=== PATIENT | female | born 1955 | race Caucasian/White ===

== ENCOUNTER → 2018-02-15 | Day surgery (SDC) | payer OTHER ==
[~2018-02-15] VITALS: Ht 160 cm; Wt 75.0 kg
[~2018-02-15] MED LIST: ACETAMINOPHEN 325 MG TAB PO PRN; ASPI81TA28 PO; ATOR-54 PO; ATROPINE SULFATE 0.1 MG/ML 5ML SYR IV PRN; CLIN150C PO; FENTANYL CITRATE INJ 50 MCG/1 ML 2 ML VIAL ONE; HEPARIN SOD (PORCINE) 1000 UNIT/ML 10 ML VIAL ONE; HYDR12.55 PO; LEVO112T4 PO; LIDOCAINE HCL 1% 20 ML VIAL ONE; MIDAZOLAM HCL 1 MG/ML 2ML VIAL ONE; NITROGLYCERIN/D5W 100MCG/ML 20ML SYR ONE; NiCARDipine HCL INJ 2.5 MG/ML 10 ML AMP ONE; OMEP20CA9 PO; ONDANSETRON INJ 2 MG/ML 2 ML VIAL IV PRN; PROP80TA2 PO; SODIUM CHLORIDE 0.9% 1000ML 1,000 ML IV SCH; SODIUM CHLORIDE 0.9% 1000ML 250 ML IV PRN; SUMA6KIT SC
[2018-02-15 08:44] VITALS: BP 145/96; PULSE 63; O2SAT 95; Ht 160 cm; Wt 75.0 kg
--- NOTE | 2018-02-15 09:24 | History & Physical Bridge Note ---
H&P Re-Evaluation Bridge Note: I have examined the patient, reviewed the History & Physical and in the interval since the performance of the History & Physical I have noted the following changes of clinical significance: No changes noted, except that on the point of care lab today her potassium is 2.9. She does take hydrochlorothiazide which she did not take this morning. I think we can proceed with the cardiac catheterization. I reviewed her most recent labs from the office and her potassium does tend to run low however her renal function is within normal limits.
--- NOTE | 2018-02-15 10:19 | Procedure Note ---
Cardiac Cath Report Procedure: 1. Coronary angiography Procedure summary: The patient was seen and evaluated in the holding area the [facility]. After informed consent was obtained the patient was prepped and draped in the usual manner for right transradial approach. Preformed 5 Beninese diagnostic catheters were utilized for the coronary angiograms. Following the procedure the patient was returned to the holding area the [facility] in stable condition. Coronary angiography: Selective injections of the left coronary artery revealed the left main trunk to be widely patent and within normal limits. The LAD extends all the way to the apex of the heart. The LAD gives off a single large diagonal branch. The LAD system is smooth in appearance widely patent and within normal limits. The left circumflex artery consists principally of a large single marginal branch which is widely patent and within normal limits. Selective injections of the right coronary artery revealed to be a large and hyperdominant. The right coronary artery is smooth in appearance widely patent and within normal limits. 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
--- NOTE | 2018-02-15 10:22 | Cardiac Catheterization ---
Procedure Note Procedure Date Feb 15, 2018. Pre-Procedure Diagnosis Positive Stress Test AUC Score 7 Post-Procedure Diagnosis Normal Coronary Arteries Procedure(s) Performed Coronary Angiography Personal Care Attendant Dr. Jacinto Mgmt Specialist(s) None Estimated Blood Loss None Medication(s) Heparin, Versed, Lidocaine 1% Summary of Findings See dictated report Hemodynamics Rest Ao: 103/66 Final Ao: 109/68 LV: Valve not crossed Recommendations Medical therapy and/or Counseling Specimens None Radiation Exposure (mGy) 1746 Contrast (mls) 77 Procedural Complication(s) None Disposition Lead Mechanical Engineer Holding/Recovery [facility] Data Cardiac Status Clinical evaluation leading to the procedure CAD Presntation: Positive Stress Test Anginal Classification: CCS I Heart Failure: No Cardiogenic Shock w/in 24Hrs: No Cardiac Arrest w/in 24Hrs: No Imaging studies past 6 months: Yes Stress studies past 6 months: Yes Stress Echocardiogram: Yes - Positive Coronary Anatomy Dominant: Right Left Main (% Stenosis): Normal LAD (% Stenosis): Normal Circumflex (% Stenosis): Normal RCA (% Stenosis): Normal Diagnostic Physician's Name: Edward Jacinto, DO Status: Elective Closure Device Closure Device: Radial Band Recommendations: Medical therapy and/or Counseling
--- NOTE | 2018-02-15 10:27 | Discharge Instructions ---
Discharge Instructions Procedure Procedure Date: Feb 15, 2018. Reason for Visit: Abn Stress Test *Ophelia To Do*. Discharge Discharge Date: Feb 15, 2018. Discharge Diagnosis: Normal coronaries Last Recorded Wt (Kilograms): 75 Anesthesia Post Anesthesia Instructions: If you have had General Anesthesia or IV Sedation: * Do not drive today. * Resume driving when surgeon permits. * Do not make important decisions or sign legal documents today. * Call surgeon for: 1. Temperature elevations greater than 101 degrees F. 2. Uncontrollable pain. 3. Excessive bleeding. 4. Persistent nausea and vomiting. 5. Medication intolerance (nausea, vomiting or rash). * For nausea and vomiting use only clear liquids such as: tea, soda, bouillon until nausea subsides, then gradually increase diet as tolerated. * If you have any concerns or questions, call your surgeon's office. If physician is unavailable and it is an emergency, call 911 or go to the nearest emergency room. Instructions Activity Recommendations: limitations Recommended Home Diet: resume previous diet Allergies: Coded Allergies: Morphine (Unverified Allergy, Intermediate, GI SYMPTOMS, 02/15/18) Uncoded Allergies: DEMEROL (Allergy, Intermediate, GI SYMPTOMS, 02/15/18) Provider Instructions ACTIVITY RECOMMENDATIONS: Excess manipulation of the wrist should be avoided for the next 24-48 hours. * No lifting over 2 pounds (approximately a 1/2 gallon of milk) with the utilized arm for 24 hours. * No strenuous activity such as bowling or tennis for 3 days. * Keep the site of the procedure covered with a bandage for 24 hours. *You may shower the day after the procedure. Do not take a tub bath or submerge the puncture site in water for the next 3 days. *Do not operate any motorized equipment for 3 days. SPECIAL CARE INSTRUCTIONS: The site may be slightly bruised and sore following your procedure. Should any of the following occur, contact the Dr. who performed your procedure. 1. Redness/inflammation, swelling, chills, or fever, or colored drainage at procedure site within 3-7 days after your procedure. 2. Coldness, discoloration, ongoing numbness, severe pain, or swelling. Expect mild tingling of hand and tenderness at the puncture site for up to three days. If this persists beyond three days, or other symptoms develop, notify the Dr. who performed your procedure. BLEEDING: If the procedure site on your wrist begins to bleed, do not panic 1. Place 1 or 2 fingers firmly just slightly above the insertion site to stop the bleeding. You may be able to feel your pulse as you hold pressure. 2. Lift your finger after 5 minutes to see if the bleeding has stopped. 3. Once the bleeding has stopped, gently wipe the wrist area clean with a bandage. * If the bleeding from your wrist does not stop after 10 minutes, or if there is a large amount of bleeding or spurting, call 911 (do not drive yourself to the hospital). SKIN IRRITATION: * You may experience some redness and/or swelling in the area where radiation was administered. If any skin irritation occurs, please contact your family physician. FOLLOW UP VISIT: Keep any scheduled doctor appointments. Follow Up Tatiana Daniels Recommendations: Call your doctor if: * Temperature above 101 degrees * Pain not relieved by pain medicine ordered * There is increased drainage or redness from any incision * You have any unanswered questions or concerns. Your Doctors Instructions noted above were prepared by provider Edward Jacinto. Patient Signature Section: Patient Instructions Signature Page Cele Stringer Patient (or Guardian) Signature/Date: I have read and understand the instructions given to me by my caregivers. Caregiver/RN/Doctor Signature/Date: The above-named patient and/or guardian has received patient instructions on this date. + Original Patient Signature Page (only) stays with chart. Please make copy for patient.
--- NOTE | 2018-02-15 10:30 | Pre Sedation Assessment ---
Pre Sedation Assessment General Date of Sedation: Feb 15, 2018. 9:38 AM Vital Signs Past 12 Hours Date Time Temp Pulse Resp B/P (MAP) Pulse Ox O2 Delivery O2 Flow Rate FiO2 02/15/18 10:22 68 16 123/70 (87) 95 Room Air 02/15/18 10:07 72 16 97/60 (72) 99 Mask 3 02/15/18 08:44 63 16 145/96 (112) 95 Room Air Review Cardiovascular: regular rate, rhythm Lungs: lungs clear Pre-Sedation Airway Assessment Smoking Status: Never Smoker Hx of Sleep Apnea: No Short Thick Neck: No Oral Cavity: WNL Mallampati Classification: Class I (Sft palate,uvula,fauces,pillar) ASA Classification: Class I NPO Status Date of Last Intake of Fluids: Feb 14, 2018 Time of Last Intake of Fluids: 11:59 Date of Last Intake of Solids: Feb 15, 2018 Time of Last Intake of Solids: 11:59 Procedure Planning Contraindications for Sedation: None Current Medications Reviewed: Yes Notes The planned sedation has been discussed with the patient. Informed Consent was obtained. I have identified the patient, determined the appropriateness of sedation and have assessed the patient immediately prior to the procedure. All medicine(s) and interventions are by my order.
--- NOTE | 2018-02-15 10:31 | Post Sedation Assessment ---
Post Sedation Assessment General Date of Sedation Feb 15, 2018. 10:07 AM Vital Signs: Vital Signs Past 12 Hours Date Time Temp Pulse Resp B/P (MAP) Pulse Ox O2 Delivery O2 Flow Rate FiO2 02/15/18 10:22 68 16 123/70 (87) 95 Room Air 02/15/18 10:07 72 16 97/60 (72) 99 Mask 3 02/15/18 08:44 63 16 145/96 (112) 95 Room Air Post Procedure Recovery Score Activity: (2) Moves 4 extremities * Respiration: (2) Deep breath/cough Circulation: (2) +/-20% PreAnes Value Consciousness: (2) Fully Awake Oxygen Saturation: (2) > 92% On Room Air Post Anesthesia Score: 10 Discharge Sedation Level of Care: Fast Track Phase II Post Sedation Plan On clinical assessment, the patient appears to have tolerated the sedation without complications. Patient is recovering as anticipated. Patient will continue to be monitored by nursing and may be discharged when sedation discharge criteria are met per below protocol. Upon Completions of procedure and additional 15 minutes continue every 5 minute vital signs and the P.A.R. score; then discharge to a Phase I or Fast Track to Phase II per the following guidelines: * Discharge Patient to appropriate Phase II area if PAR is 8 or greater or return to pre- procedure baseline. The post - procedure orders will be as directed. * If PAR score is less than 8 or not return to pre-procedure baseline then patient will follow Phase I monitoring till PAR is reached for Phase II. The Phase I may be done in procedure room or may call to secure a Phase I area. * If naloxone or flumazenil are used for reversal, hold in Phase I for an additional 60 -120 minutes before discharge to Phase II. Please call the Sedation Physician to re-evaluate and complete post-note for discharge to Phase II area. Do NOT discharge from procedure sedation or Phase 1 until post- sedation evaluation note is complete by procedure /sedation MD Sedation Discharge Instructions to be given to the patient at discharge to home.
[2018-02-15 12:30] VITALS: PULSE 60; O2SAT 97
== END | disposition home or self-care (01) ==
LOC: C.CATH 08:10
PROVIDERS: ATTEND Internal Medicine Interventional Cardiology
DX: R07.9 Chest pain, unspecified (principal); R06.09 Other forms of dyspnea; R94.31 Abnormal electrocardiogram [ECG] [EKG]; I10 Essential (primary) hypertension; E78.5 Hyperlipidemia, unspecified; E03.9 Hypothyroidism, unspecified; I73.00 Raynaud's syndrome without gangrene; Z82.49 Family history of ischemic heart disease and other diseases of the circulatory system; Z90.49 Acquired absence of other specified parts of digestive tract; Z96.659 Presence of unspecified artificial knee joint; Z90.710 Acquired absence of both cervix and uterus; Z88.1 Allergy status to other antibiotic agents; Z88.5 Allergy status to narcotic agent; Z79.82 Long term (current) use of aspirin

== ENCOUNTER 2018-02-17 14:18 | Emergency (ER) | payer OTHER ==
[~2018-02-17] VITALS: Ht 160 cm; Wt 74.7 kg
[~2018-02-17 14:18] MED LIST changes: -ACETAMINOPHEN 325 MG TAB PO PRN; -ATROPINE SULFATE 0.1 MG/ML 5ML SYR IV PRN; -FENTANYL CITRATE INJ 50 MCG/1 ML 2 ML VIAL ONE; -HEPARIN SOD (PORCINE) 1000 UNIT/ML 10 ML VIAL ONE; -LIDOCAINE HCL 1% 20 ML VIAL ONE; -MIDAZOLAM HCL 1 MG/ML 2ML VIAL ONE; -NITROGLYCERIN/D5W 100MCG/ML 20ML SYR ONE; -NiCARDipine HCL INJ 2.5 MG/ML 10 ML AMP ONE; -ONDANSETRON INJ 2 MG/ML 2 ML VIAL IV PRN; -SODIUM CHLORIDE 0.9% 1000ML 1,000 ML IV SCH; -SODIUM CHLORIDE 0.9% 1000ML 250 ML IV PRN
[2018-02-17 14:23] VITALS: TEMP 36.5; Ht 160 cm; Wt 74.7 kg
--- NOTE | 2018-02-17 14:57 | DIAGNOSTIC IMAGING REPORT ---
CHEST ONE VIEW PORTABLE CLINICAL HISTORY: blurry vision COMPARISON STUDY: No previous studies for comparison. FINDINGS: The heart is normal in size. There is mild aortic tortuosity. There is no failure. There is no focal pulmonary consolidation. There are no pleural effusions.[ IMPRESSION: No active disease in the chest. Electronically signed by: Seng Jackson M.D. 02/17/2018 2:55 PM Dictated Date/Time: 02/17/2018 2:55 PM
[2018-02-17 15:07] LABS: BASO % 0.4 %; BASO ABS # 0.03 K/uL (0-0.2); EOS % 5.4 %; HEMATOCRIT 37.1 % (37-47); IG# 0.02 K/uL (0.00-0.02); LYMPH % 29.7 %; LYMPH ABS # 2.21 K/uL (1.2-3.4); MEAN CORPUSCULAR HEMOGLOBIN 32.6 pg (25-34); MEAN PLATELET VOLUME 9.9 fL (7.4-10.4); MONO % 7.4 %; MONO ABS # 0.55 K/uL (0.11-0.59); NEUT % 56.8 %; NEUT ABS # 4.22 K/uL (1.4-6.5); PLATELET COUNT 192 K/uL (130-400); RED CELL DISTRIBUTION WIDTH SD 47.7 fL (36.4-46.3); WHITE BLOOD COUNT 7.43 K/uL (4.8-10.8)
[2018-02-17 15:25] LABS: CALCIUM 8.6 mg/dl (8.5-10.1); CREATININE 0.89 mg/dl (0.60-1.20); POTASSIUM 2.9 mmol/L (3.5-5.1)
[2018-02-17] MEDS ORDERED: POTASSIUM CHLORIDE 10 MEQ TABCR PO STA (15:26)
--- NOTE | 2018-02-17 15:30 | DIAGNOSTIC IMAGING REPORT ---
CT SCAN OF THE BRAIN WITHOUT IV CONTRAST CLINICAL HISTORY: Blurry vision. Headache. COMPARISON STUDY: No priors. TECHNIQUE: Unenhanced axial CT scan of the brain is performed from the vertex to the skull base. A dose lowering technique was utilized adhering to the principles of ALARA. CT DOSE: 638.56 mGycm FINDINGS: Brain parenchyma: The brain parenchyma is normal in appearance. There is no hemorrhage, mass effect, or evidence of acute territorial ischemia by CT criteria. Szymanski-white matter is preserved. No extra-axial fluid collection is seen. Ventricles, sulci, cisterns: Normal in configuration. Intracranial vasculature: The visualized intracranial vasculature at the skull base is normal in appearance. Calvarium: Unremarkable. Sinuses and mastoids: There is mild mucosal thickening within the ethmoid sinuses and the left frontal sinus. Trace because of thickening is seen in the left sphenoid sinus. The mastoid air cells are well pneumatized. Orbits: The bony orbits are grossly intact. IMPRESSION: There is no hemorrhage, mass effect, or evidence of acute territorial ischemia by CT criteria. Electronically signed by: Baljeet Knutson M.D. 02/17/2018 3:28 PM Dictated Date/Time: 02/17/2018 3:26 PM
[2018-02-17] MEDS ORDERED: LORAZEPAM 1 MG TAB SL STA (16:08)
[2018-02-17] MEDS ORDERED: LORAZEPAM 2 MG/ML 1 ML VIAL ONE (16:14)
--- NOTE | 2018-02-17 17:24 | DIAGNOSTIC IMAGING REPORT ---
MR ANGIOGRAM OF THE BRAIN CLINICAL HISTORY: Blurry vision. COMPARISON STUDY: MRI of the brain performed concurrently on 02/17/2018. TECHNIQUE: 3-D [id number] MR angiography of the intracranial circulation is performed. 3-D tumble views are created and assessed. IV contrast was not administered for this examination. FINDINGS: There is a large right posterior communicating artery. The internal carotid arteries are widely patent bilaterally, as are the anterior and middle cerebral arteries. The vertebrobasilar system and posterior cerebral arteries are widely patent. The vertebral arteries are codominant. There is no aneurysm, high-grade stenosis, or focal vessel cutoff seen throughout the intracranial circulation. The brain parenchyma is normal as visualized. IMPRESSION: Unremarkable MR angiogram of the brain. Electronically signed by: Baljeet Knutson M.D. 02/17/2018 5:22 PM Dictated Date/Time: 02/17/2018 5:20 PM
--- NOTE | 2018-02-17 17:26 | DIAGNOSTIC IMAGING REPORT ---
BRAIN WITHOUT CONTRAST CLINICAL HISTORY: 62 years-old Female presenting with blurry vision sent in by neuro/cards. TECHNIQUE: Multisequence, multiplanar MR imaging of the brain was performed without the use of intravenous contrast. IV contrast: None. COMPARISON: CT head performed earlier the same day. FINDINGS: Ventricles and sulci normal in size. Brain parenchyma normal in appearance with preserved cabezas-white differentiation. No mass effect or midline shift. No restricted diffusion to suggest acute ischemia. No hemorrhage. No extra-axial fluid collection. T2 skull base flow voids preserved. Bone marrow signal intensity within the calvarium within normal limits. Mucosal thickening in the right maxillary sinus. Trace mucosal thickening in the sphenoid sinus. IMPRESSION: 1. No acute intracranial abnormality. Electronically signed by: Chandra Bonilla M.D. 02/17/2018 5:25 PM Dictated Date/Time: 02/17/2018 5:22 PM
[2018-02-17 17:55] VITALS: BP 129/71; PULSE 68; O2SAT 95
--- NOTE | 2018-02-17 22:11 | EMERGENCY ROOM VISIT NOTE ---
History Report prepared by Quirino: Oh Ryan Under the Supervision of: Dr. Ryan Goel D.O. First contact with patient: 14:25 Chief Complaint: ILLNESS Stated Complaint: VISION PROBLEMS History of Present Illness The patient is a 62 year old female who presents to the Emergency Room with complaints of episodes of visual disturbances that started 2 days ago. She states that she had a heart catheterization 2 days ago around [address] Jacinto, and right afterward in recovery she had an episode of blurry peripheral vision that lasted about 5 minutes. The patient states that she then had an episode of the same visual problem while at home around 7 hours ago, which lasted for 20 minutes. She notes that her left eye was more blurry than her right eye both times. She adds that she has a history of migraines, but she does not get this type of visual disturbance during her migraines. The patient states that both of her arms have been bothering her for the past few days, but it has not been coming and going with the visual disturbance. She denies any headaches, weakness in the arms of legs, chest pain, new shortness of breath, nausea, vomiting, or diarrhea. Source of History: patient, spouse/significant other Onset: 2 days ago Position: eye (bilateral) Symptom Intensity: blurry peripheral vision Quality: other (visual disturbances) Timing: other (episodes) Associated Symptoms: No headache, No chest pain, No SOB (no new), No nausea , No vomiting, No diarrhea, No weakness Review of Systems See HPI for pertinent positives & negatives. A total of 10 systems reviewed and were otherwise negative. Past Medical & Surgical Surgical Problems: (1) Hx of cardiac cath Family History No pertinent family history Social History Smoking Status: Never Smoker Drug Use: none Marital Status: Housing Status: lives with family Current/Historical Medications Scheduled Aspirin (Aspirin Ec), 81 MG PO QAM Atorvastatin (Lipitor), 20 MG PO QAM Clindamycin Hcl (Cleocin), 60 MG PO DIRECTED Hydrochlorothiazide (Hydrochlorothiazide), 12.5 MG PO HS Levothyroxine Sodium (Levothyroxine Sodium), 112 MG PO QAM Omeprazole (Prilosec), 20 MG PO QAM Propranolol (Inderal), 80 MG PO QAM Scheduled PRN Sumatriptan Succinate (Imitrex Statdose), 6 MG SC Q4 PRN for Headache Allergies Coded Allergies: Morphine (Unverified Adverse Reaction, Intermediate, GI SYMPTOMS, 02/17/18) Meperidine (Verified Adverse Reaction, Unknown, GI SYMPTOMS, 02/17/18) Physical Exam Vital Signs Date Time Temp Pulse Resp B/P (MAP) Pulse Ox O2 Delivery O2 Flow Rate FiO2 02/17/18 17:55 68 18 129/71 95 02/17/18 16:06 68 18 146/91 98 Room Air 02/17/18 14:23 36.5 71 18 150/99 96 Room Air Physical Exam GENERAL: Sitting up in bed, alert, well appearing, well nourished, no distress, non-toxic EYE EXAM: normal conjunctiva. PERRL and EOM's intact. OROPHARYNX: no exudate, no erythema, lips, buccal mucosa, and tongue normal and mucous membranes are moist NECK: supple, no nuchal rigidity, no adenopathy, non-tender LUNGS: Clear to auscultation. Normal chest wall mechanics HEART: no murmurs, S1 normal and S2 normal ABDOMEN: abdomen soft, non-tender, normo-active bowel sounds, no masses, no rebound or guarding. BACK: Back is symmetrical on inspection and there is no deformity, no midline tenderness, no CVA tenderness. SKIN: no rashes and no bruising UPPER EXTREMITIES: Band-aid over right radial artery. Good pulse. LOWER EXTREMITIES: No pitting edema. NEURO EXAM: Normal sensorium, cranial nerves II-XII intact, normal speech, no weakness of arms, no weakness of legs. No drift. Finger to nose intact. Gross sensation intact. Medical Decision & Procedures ER Provider Diagnostic Interpretation: Radiology results as stated below per my review and the radiologist's interpretation: CT SCAN OF THE BRAIN WITHOUT IV CONTRAST CLINICAL HISTORY: Blurry vision. Headache. COMPARISON STUDY: No priors. TECHNIQUE: Unenhanced axial CT scan of the brain is performed from the vertex to the skull base. A dose lowering technique was utilized adhering to the principles of ALARA. CT DOSE: 638.56 mGycm FINDINGS: Brain parenchyma: The brain parenchyma is normal in appearance. There is no hemorrhage, mass effect, or evidence of acute territorial ischemia by CT criteria. Szymanski-white matter is preserved. No extra-axial fluid collection is seen. Ventricles, sulci, cisterns: Normal in configuration. Intracranial vasculature: The visualized intracranial vasculature at the skull base is normal in appearance. Calvarium: Unremarkable. Sinuses and mastoids: There is mild mucosal thickening within the ethmoid sinuses and the left frontal sinus. Trace because of thickening is seen in the left sphenoid sinus. The mastoid air cells are well pneumatized. Orbits: The bony orbits are grossly intact. IMPRESSION: There is no hemorrhage, mass effect, or evidence of acute territorial ischemia by CT criteria. Electronically signed by: Baljeet Knutson M.D. 02/17/2018 3:28 PM Dictated Date/Time: 02/17/2018 3:26 PM CHEST ONE VIEW PORTABLE CLINICAL HISTORY: blurry vision COMPARISON STUDY: No previous studies for comparison. FINDINGS: The heart is normal in size. There is mild aortic tortuosity. There is no failure. There is no focal pulmonary consolidation. There are no pleural effusions.[ IMPRESSION: No active disease in the chest. Electronically signed by: Seng Jackson M.D. 02/17/2018 2:55 PM Dictated Date/Time: 02/17/2018 2:55 PM MR ANGIOGRAM OF THE BRAIN CLINICAL HISTORY: Blurry vision. COMPARISON STUDY: MRI of the brain performed concurrently on 02/17/2018. TECHNIQUE: 3-D [id number] MR angiography of the intracranial circulation is performed. 3-D tumble views are created and assessed. IV contrast was not administered for this examination. FINDINGS: There is a large right posterior communicating artery. The internal carotid arteries are widely patent bilaterally, as are the anterior and middle cerebral arteries. The vertebrobasilar system and posterior cerebral arteries are widely patent. The vertebral arteries are codominant. There is no aneurysm, high-grade stenosis, or focal vessel cutoff seen throughout the intracranial circulation. The brain parenchyma is normal as visualized. IMPRESSION: Unremarkable MR angiogram of the brain. Electronically signed by: Baljeet Knutson M.D. 02/17/2018 5:22 PM Dictated Date/Time: 02/17/2018 5:20 PM BRAIN WITHOUT CONTRAST CLINICAL HISTORY: 62 years-old Female presenting with blurry vision sent in by neuro/cards. TECHNIQUE: Multisequence, multiplanar MR imaging of the brain was performed without the use of intravenous contrast. IV contrast: None. COMPARISON: CT head performed earlier the same day. FINDINGS: Ventricles and sulci normal in size. Brain parenchyma normal in appearance with preserved szymanski-white differentiation. No mass effect or midline shift. No restricted diffusion to suggest acute ischemia. No hemorrhage. No extra-axial fluid collection. T2 skull base flow voids preserved. Bone marrow signal intensity within the calvarium within normal limits. Mucosal thickening in the right maxillary sinus. Trace mucosal thickening in the sphenoid sinus. IMPRESSION: 1. No acute intracranial abnormality. Electronically signed by: Chandra Bonilla M.D. 02/17/2018 5:25 PM Dictated Date/Time: 02/17/2018 5:22 PM Laboratory Results 02/17/18 15:00 Red Blood Count 3.99, Mean Corpuscular Volume 93.0, Mean Corpuscular Hemoglobin 32.6, Mean Corpuscular Hemoglobin Concent 35.0, Mean Platelet Volume 9.9, Neutrophils (%) (Auto) 56.8, Lymphocytes (%) (Auto) 29.7, Monocytes (%) (Auto) 7.4, Eosinophils (%) (Auto) 5.4, Basophils (%) (Auto) 0.4, Neutrophils # (Auto) 4.22, Lymphocytes # (Auto) 2.21, Monocytes # (Auto) 0.55, Eosinophils # (Auto) 0.40, Basophils # (Auto) 0.03 02/17/18 15:00 Test 02/17/18 15:00 White Blood Count 7.43 K/uL (4.8-10.8) Red Blood Count 3.99 M/uL (4.2-5.4) Hemoglobin 13.0 g/dL (12.0-16.0) Hematocrit 37.1 % (37-47) Mean Corpuscular Volume 93.0 fL (80-100) Mean Corpuscular Hemoglobin 32.6 pg (25-34) Mean Corpuscular Hemoglobin Concent 35.0 g/dl (32-36) Platelet Count 192 K/uL (130-400) Mean Platelet Volume 9.9 fL (7.4-10.4) Neutrophils (%) (Auto) 56.8 % Lymphocytes (%) (Auto) 29.7 % Monocytes (%) (Auto) 7.4 % Eosinophils (%) (Auto) 5.4 % Basophils (%) (Auto) 0.4 % Neutrophils # (Auto) 4.22 K/uL (1.4-6.5) Lymphocytes # (Auto) 2.21 K/uL (1.2-3.4) Monocytes # (Auto) 0.55 K/uL (0.11-0.59) Eosinophils # (Auto) 0.40 K/uL (0-0.5) Basophils # (Auto) 0.03 K/uL (0-0.2) RDW Standard Deviation 47.7 fL (36.4-46.3) RDW Coefficient of Variation 14.0 % (11.5-14.5) Immature Granulocyte % (Auto) 0.3 % Immature Granulocyte # (Auto) 0.02 K/uL (0.00-0.02) Anion Gap 9.0 mmol/L (3-11) Est Creatinine Clear Calc Drug Dose 62.6 ml/min Estimated GFR () 79.9 Estimated GFR (Non- 69.0 BUN/Creatinine Ratio 13.4 (10-20) Calcium Level 8.6 mg/dl (8.5-10.1) Laboratory results per my review. Medications Administered Medications (Trade) Dose Ordered Sig/Salty Route Start Time Stop Time Status Last Admin Dose Admin Potassium Chloride (Klor-Con M10) 40 meq NOW STAT PO 02/17/18 15:26 02/17/18 15:28 DC 02/17/18 16:04 40 MEQ Lorazepam (Ativan Inj) 2 mg STK-MED ONCE .ROUTE 02/17/18 16:14 02/17/18 16:15 DC 02/17/18 16:20 1 MG ECG Per My Interpretation Indication: other (vision disturbance) Rate (beats per minute): 65 Rhythm: sinus rhythm Findings: T-wave inversion (Anterior), no ectopy Comparison ECG Date: no prior available ED Course ED COURSE: Vital signs were reviewed and showed hypertensive situational vitals. The patients medical record was reviewed The above diagnostic studies were performed and reviewed. ED treatments and interventions as stated above. 1432: The patient was evaluated in room B3B. A complete history and physical examination was performed. 1449: I discussed the patient with Dr. Shakeel Collazo neurology - he says to get an MRI of the brain and MRA. 1526: Klor-Con M10 40 meq PO. 1607: I reevaluated the patient and she will try to go back through the MRI machine, and she will try Ativan. 1608: Ativan Tab 1 mg SL. 1709: The patient went back to MRI. 1755: Upon reevaluation, the patient's left eye is 20/50, and the right is 20/ 40. I discussed my findings with the patient and she understands and agrees with the treatment plan. Based on the patients age, coexisting illnesses, exam and lab findings the decision to treat as an outpatient was made. The patient remained stable while under my care. The patient appeared well at the time of discharge. Medical Decision Differential Diagnosis includes but is not limited to ischemic Stroke, hemorrhagic stroke, bells palsy, mass, neoplasm, migraine headache, seizure, subarachnoid hemorrhage, TIA, and transient global amnesia. Patient is a 62-year-old female who presents the ER for intermittent blurry vision since her catheterization yesterday. She has had 2 episodes of this. She was seen by cardiology and discussed with neurology who recommended coming in for MRIs. Patient was evaluated bedside. CBC along with BMP shows a mild hypokalemia. CT head was negative. EKG was unremarkable. Chest x-ray unremarkable as well. MRIs were obtained including MRI and MRA of the brain which were normal. Neurology recommended if these were negative to follow-up as an outpatient. Visual acuity was fairly unremarkable. Patient notes she has absolutely no complaints at this time and she was discharged follow-up with PCP as an outpatient. Of note she did have some difficulty going through the MRI machine was given Ativan and imaging was obtained. Discussed with Pt concerning signs and symptoms to watch out for. Pt was instructed to follow up with their PCP and discussed with the patient their option to return to the ED at anytime for persistent or worsening symptoms. The appropriate anticipatory guidance and out-patient management, including indications for return to the emergency department, were explained at length to the patient and understood. Medication Reconcilliation Current Medication List: was personally reviewed by me Blood Pressure Screening Patient's blood pressure: Elevated blood pressure Blood pressure disposition: Elevated BP felt to be situational Consults Time Called: 1441 Consulting Physician: Dr. Shakeel Collazo neurology Returned Call: [phone] I discussed the patient with Dr. Shakeel Collazo neurology - he says to get an MRI of the brain and MRA. Impression Primary Impression: Blurry vision Additional Impression: Hypokalemia Scribe Attestation The scribe's documentation has been prepared under my direction and personally reviewed by me in its entirety. I confirm that the note above accurately reflects all work, treatment, procedures, and medical decision making performed by me. Departure Information Dispostion Home / Self-Care Referrals Fran Salomon D.O. (PCP) Patient Instructions ED Blurred Vision, My [facility] Additional Instructions Please follow up with your primary care doctor with in the next 24 hours. Any worsening of your symptoms, please return to the ED immediately. This includes any fevers greater than 100.4, worsening pain, chest pain, shortness breath, persistent nausea, vomiting, unable to eat or drink, weakness or numbness in her arms or legs, or any other concerning signs or symptoms from your standpoint. Problem Qualifiers
== END 2018-02-17 18:00 | disposition home or self-care (01) ==
LOC: C.EDB 14:21
DX: H53.8 Other visual disturbances (principal); E87.6 Hypokalemia; R03.0 Elevated blood-pressure reading, without diagnosis of hypertension; Z98.890 Other specified postprocedural states; Z79.82 Long term (current) use of aspirin; Z79.899 Other long term (current) drug therapy; Z88.5 Allergy status to narcotic agent; Z88.8 Allergy status to other drugs, medicaments and biological substances